=== PATIENT | male | born 1960 | race Caucasian/White ===

== ENCOUNTER 2020-12-04 14:00 | Outpatient (RCR) | payer BC, SELFPAY ==
--- NOTE | 2020-11-04 11:25 | PTOPEVAL ---
PHYSICAL THERAPY EVALUATION Thank you for referring Shaggy Rodriguez to [facility].? Donald was evaluated for the dx of left shoulder instability after dislocation. The patient is scheduled to be seen for therapy? 1x/week (pt request on frequency) for 4 weeks. Please review, sign, date and return this plan of care IHSAN. I agree with and certify that the following plan of care is medically necessary. Referring Physician Date Attending Provider: Tyler Bourne, MD *PT Outpatient Evaluation Start: 11/04/20 08:55 Freq: Status: Active Protocol: Document 11/04/20 08:58 MLV (Rec: 11/04/20 09:57 MLV [id number]) Therapy Assessment Status Assessment Status Evaluation Evaluation Information Problem Diagnosis left shoulder instability Onset September 29, 2020 Cause trying to sit up in bed Additional Evaluation Detail The patient has had no trouble with dislocations for last 5 years until last summer when it was dislocated while trying to help his son while he was having a seizure. On September 26 this year, patient tensed up when mad and yelling and the shoulder dislocated again. Has dislocated again a week later while trying to get out of bed. Pt had to go to hospital to have it put back in. Saw MD and told pt his RTC was not torn but bony changes from years of dislocations. The patient and the MD feel surgery is not the best option for his current state and feels the shoulder would benefit more from therapy. 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 Pt currently is not working. The patient also landscapes. The patient is right hand dominant. Pain Assessment Timing of Pain Assessment Timing of Pain Assessment Assessment Pain Scale Pain Scale Used Numeric (1 - 10) Self Report Pain Assessment Left Shoulder(s) Reported Pain Level 0 Pain Frequency Acute,Chronic Other Pain Description not painful but cannot lift
--- NOTE | 2020-12-04 14:31 | PTOPEVAL ---
Thank you for referring Shaggy Rodriguez to [facility].? Donald has received 5 therapy visits to address his shoulder impairments. As a result of skilled therapy services he demonstrates improved shoulder motion, improved pain, improved strength and tolerance with daily activities. His goals have been achieved. Will DC skilled therapy services at this time. Please review, sign, date and return this discharge summary IHSAN. I agree with and certify that the following plan of care is medically necessary. Referring Physician Date Attending Provider: Tyler Bourne, Physical Therapy Discharge Note Diagnosis left shoulder instability Onset September 29, 2020 Cause trying to sit up in bed Additional Evaluation Detail The patient has had no trouble with dislocations for last 5 years until last summer when it was dislocated while trying to help his son while he was having a seizure. On September 26 this year, patient tensed up when mad and yelling and the shoulder dislocated again. Has dislocated again a week later while trying to get out of bed. Pt had to go to hospital to have it put back in. Saw MD and told pt his RTC was not torn but bony changes from years of dislocations. The patient and the MD feel surgery is not the best option for his current state and feels the shoulder would benefit more from therapy. Subjective Information He reports his shoulder is Query Text:As Reported By Patient/ feeling better without any Family occasions of it feeling like it would dislocated. He is able to perform reaching task without limitations. He was able to hang a door without difficulty. He was able to plan frisbee golf without difficulty. Pain Assessment Pain Scale Used Numeric (1 - 10) Self Report Pain Assessment Left Shoulder(s) Reported Pain Level 0 Greatest Pain Intensity 0 Upper Extremity Range of Motion Gross Upper Extremity Range of Motion left shoulder active motion: Comments extension 55, flexion 154, abduction 164, shoulder abd to 65 dg for l
== END 2020-12-05 12:40 | disposition home or self-care (01) ==
LOC: ANHPT 14:00
PROVIDERS: PCP Internal Medicine; Visit Provider Orthopaedic Surgery
DX: S43 Dislocation and sprain of joints and ligaments of shoulder girdle (principal)
CPT/HCPCS: 97110; 97162